=== PATIENT | female | born 1990 | race American Indian/Alaskan Native ===

== ENCOUNTER 2019-02-12 10:08 | Emergency (ER) | payer SELFPAY ==
--- NOTE | 2019-02-12 10:49 | XRay Report ---
Left 3 views: History: fall with injury to fifth digit Findings a fracture noted at the base of the fifth metacarpal subarticular region. No displacement of fracture fragments. Normal proximal and distal diaphysis and the adjacent joints. Impression: Fractured fifth metacarpal.
[2019-02-12] MEDS ORDERED: XYLOCAINE 2% INFILTRATI ONE (10:51)
[2019-02-12] MEDS ORDERED: NORCO 5/325 PO ONE (10:51)
--- NOTE | 2019-02-12 10:52 | Emergency Department Report ---
HPI - General Chief Complaint: Extremity Injury, Upper Time Seen by Provider: 02/12/19 10:50 - HPI HPI: Patient is a 28-year-old female who comes to the ER today 3 days after falling and hurting her left fifth finger. She states that she fell on it while she was out of town and has not sought medical attention. There is an obvious deformity on admission to the ER. There is rapid capillary refill. Patient cannot move the finger. She denies any major medical history. She denies any other injury ED Past Medical Hx - Past Medical History Previous Medical History?: No - Surgical History Past Surgical History?: No - Family History Family history: no significant - Medications Home Medications: Home Medications Medication Instructions Recorded Confirmed Last Taken Type traMADol [Ultram] 50 mg PO Q6HR PRN #10 tablet 02/12/19 Unknown Rx ED Review of Systems ROS: Stated complaint: PINKY FINGER INJURED Other details as noted in HPI Comment: All other systems reviewed and negative Physical Exam - Physical Exam Physical Exam: WDWN patient in NAD VS per RN flow sheet Alert and oriented to person, place and time. S1-S2. No S3 or S4. No systolic or diastolic murmur. No JVD. No pitting edema. Lungs clear to auscultation bilaterally anteriorly and posteriorly. Abdomen soft nontender bowel sounds X4 L 5TH DIGIT W DEFORMITY; RAPID CAP REFILL; DEC MOVEMENT DUE TO PAIN ALL OTHER DIGITS WNL. WRIST JOINT FULL ROM. SP GLF WITH NO OTHER INJURIES Mood and affect appropriate. - Nerve Block Consent Obtained: verbal consent Time Out Performed: Yes Local Anesthetic Used: Lidocaine 2% Amount of anesthesia used: 4 Side: left Nerve Blocks: digital Procedure Successful: Yes Complications: none Patient Tolerated Procedure: well - Orthopedic Fracture Reduction FINGER Consent Obtained: verbal consent Time Out Performed: Yes Side: left Fracture Reduction Location: metacarpal Analgesia: digital block Technique: direct manipulation Post-Reduction Neuro Exam: intact Post-Reduction Vascular Exam: intact Splint Applied: Yes Patient Tolerated Procedure: well ED Medical Decision Making - Radiology Data Radiology results: report reviewed, image reviewed - Medical Decision Making XRAY NOTED MEDICATED FOR PAIN FINGER REDUCED AND SPLINTED DC HOME WITH FOLLOW UP WITH ORTHO ON SUNDAY. NEUROVASC INTACT ON DISCHARGE. Vital Signs 02/12/19 02/12/19 11:27 11:30 Temperature 98.4 F Pulse Rate 82 Respiratory 16 16 Rate Blood Pressure 140/70 O2 Sat by Pulse 100 Oximetry Critical care attestation.: If time is entered above; I have spent that time in minutes in the direct care of this critically ill patient, excluding procedure time. ED Disposition Clinical Impression: Finger fracture, left Disposition: DC-01 TO HOME OR SELFCARE Is pt being admited?: No Does the pt Need Aspirin: No Condition: Stable Instructions: Finger Fracture (ED) Additional Instructions: DIET TOLERATED MEDS ORDERED TODAY IN ER FOLLOW INSTRUCTIONS ON THE BOTTLE FOLLOW UP PCP WITHIN 48 HOURS TO ENSURE YOU ARE GETTING BETTER ACTIVITY TOLERATED MOTRIN OR TYLENOL FOR PAIN OR FEVER RETURN TO THE ER FOR WORSENING SYMPTOMS NOT RELIEVED BY YOUR MEDICATIONS. ICE REST ELEVATE SPLINT FOLLOW UP WITH DR SILVA SUNDAY FOR RECHECK Prescriptions: traMADol [Ultram] 50 mg PO Q6HR PRN #10 tablet PRN Reason: Pain Referrals: KEENA SILVA MD [Staff Physician] - 3-5 Days Time of Disposition: 11:40
[2019-02-12 11:29] VITALS: BP 140/70
== END 2019-02-12 12:06 | disposition home or self-care (01) ==
LOC: ED 10:08
DX: S62.607A Fracture of unspecified phalanx of left little finger, initial encounter for closed fracture (principal); W19.XXXA Unspecified fall, initial encounter; Y93.89 Activity, other specified; Y92.89 Other specified places as the place of occurrence of the external cause; Y99.8 Other external cause status

== ENCOUNTER 2019-11-02 17:47 | Outpatient (CLI) | payer MEDICAID ==
[2019-11-02 19:39] LABS: Hematocrit 32.6 % (30.3-42.9); Hemoglobin 11.1 gm/dl (10.1-14.3); Mean Corpuscular HGB Conc 34 % (30-34); Mean Corpuscular Volume 79 fl (79-97); Platelet Count 224 K/mm3 (140-440); Red Blood Count 4.13 M/mm3 (3.65-5.03); Red Cell Distribution Width 14.9 % (13.2-15.2)
[2019-11-02 19:44] LABS: Bacteria,Urine 4+ /HPF (Negative); Bilirubin,Urine NEG (Negative); Blood,Urine SM (Negative); Color,Urine Yellow (Yellow); Mucus,Urine FEW /HPF; Protein,Urine <15 mg/dL mg/dL (Negative); Urobilinogen,Urine < 2.0 mg/dL (<2.0)
[2019-11-02 20:05] LABS: Alanine Aminotransferase 15 units/L (7-56); Uric Acid 3.4 mg/dL (3.5-7.6)
[2019-11-02 20:53] VITALS: BP 102/57
== END 2019-11-02 21:55 | disposition home or self-care (01) ==
LOC: TRG 17:47
PROVIDERS: ATTEND Obstetrics & Gynecology
DX: O26.892 Other specified pregnancy related conditions, second trimester (principal); R51 Headache; Z3A.27 27 weeks gestation of pregnancy
CPT/HCPCS: 36415; 81001; 82565; 83615; 84450; 84460; 84550; 85027; 87086

== ENCOUNTER 2020-01-28 07:18 | Inpatient (IN) | payer MEDICAID ==
[2020-01-28] MEDS ORDERED: ONDANSETRON 4 MG/2 ML INJ ONE (07:32)
[2020-01-28] MEDS ORDERED: fentaNYL 100 MCG/2 ML INJ ONE (07:32)
[2020-01-28] MEDS ORDERED: OXYTOCIN 20 UNIT/1000ML DRIP 40,000 MILLIUNITS/2,000 ML BAG IV ONE (07:34)
[2020-01-28] MEDS ORDERED: METHYLERGONOVINE MALEATE 0.2 MG/ML VIAL IM ONE (07:44)
[2020-01-28] MEDS ORDERED: ePHEDrine SULFATE 50 MG/1 ML INJ IV PRN (07:56)
[2020-01-28] MEDS ORDERED: ONDANSETRON 4 MG/2 ML INJ IV PRN (07:56)
[2020-01-28] MEDS ORDERED: LIDOCAINE (2%) 20 MG/1 ML VIAL 20 ML MDV INFILTRATI NR (07:56)
[2020-01-28] MEDS ORDERED: fentaNYL 100 MCG/2 ML INJ IV PRN (07:56)
[2020-01-28] MEDS ORDERED: TERBUTALINE 1 MG/1 ML INJ SUB-Q PRN (07:56)
[2020-01-28] MEDS ORDERED: OXYTOCIN 20 UNIT/1000ML DRIP 20 UNITS/1,000 ML BAG IV SCH ×2 (08:00→10:24)
[2020-01-28] MEDS ORDERED: OXYTOCIN DRIP 30 UNITS/500 ML BAG IV SCH (08:00)
[2020-01-28] MEDS ORDERED: LACTATED RINGERS 1,000 ML IV SCH (08:00)
--- NOTE | 2020-01-28 08:03 | History and Physical Report ---
History of Present Illness Date of examination: 01/28/20 Date of admission: 01/28/20 07:18 Chief complaint: labor History of present illness: EDC Calculations LMP: 02/01/2020 Past History : 6 Term Births: 2 Premature Births: 1 Living Children: 3 Para: 3 Mult. Births: 0 Prev : 0 Prev. attempt? 0 Aborta: 2 Elect. Ab: 2 Spont. Ab: 0 Ectopics: 0 # 1 Delivery date: 2007 Weeks Gestation: term labor: no Delivery type: Delivery location: Only Sex: Female weight: 7#12 # 2 Delivery date: 2011 Weeks Gestation: term labor: no Delivery type: Anesthesia type: none Delivery location: Only Sex: Male weight: 7#10 Comments: ^b/p # 3 Delivery date: 2016 Weeks Gestation: 34 labor: yes Delivery type: Anesthesia type: none Delivery location: Only Infant Sex: Female weight: 4#4 Comments: PPROM, placenta problem during , bleeding Risk Factors: Smoked Tobacco Use: Never smoker Smokeless Tobacco Use: Never Drug use: yes Substance: marijuana HIV high-risk behavior: no Alcohol use: no Exercise: no Seatbelt use: 100 % Dietary Counseling: pn yes Past Medical History: Negative Past Medical History Past Surgical History: lipoma removed surgery on right hand/ finger Past Medical History Surgery (Non-aircraft time clerk): lipoma removed surgery on right hand/ finger Abnormal PAP: positive Family Hx: sister and nephew - protein S def - Pt is not a carrier 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 of genital herpes: no Partner hx. of genital herpes: no Rash, Viral, or Febrile illness since last LMP? no Varicella/Chicken Pox Status: Previous Disease Genetic History Congenital Heart Defect: Mom: no Dad: no Sorin Disease: Mom: no Dad: no Thalassemia Mom: no Dad: no Neural Tube Defect Mom: no Dad: no Down's Syndrome Mom: no Dad: no Nathanael-Sachs Mom: no Dad: no Sickle Cell Disease/Trait Mom: no Dad: no Hemophilia Mom: no Dad: no Muscular Dystrophy Mom: no Dad: no Cystic Fibrosis Mom: no Dad: no [place] Chorea Mom: no Dad: no Mental Retardation Mom: no Dad: no Fragile X Mom: no Dad: no Other Genetic/Chromosomal Disorder Mom: no Dad: no Child w/other defect Mom: no Dad: no Enviromental Exposures Xray Exposure: yes Medication, drug, or alcohol use since LMP: no Chemical/Other Exposure: no Exposure to Cat Liter: no Hx of Parvovirus (Fifth Disease): no Occupational Exposure to Children: none Active Medications: None Current Allergies: No known allergies Past History Past Medical History: other (see HPI) Past Surgical History: other (see HPI) LEAD CAREGIVER History: other (See HPI) Family/Genetic History: other (see HPI) - Obstetrical History Expected Date of Delivery: 02/01/20 Actual Gestation: 39 Week(s) 3 Day(s) : 6 Para: 3 Hx # Term Pregnancies: 2 Number of Pregnancies: 1 Spontaneous Abortions: 0 Induced : 2 Number of Living Children: 3 Medications and Allergies Allergies Allergy/AdvReac Type Severity Reaction Status Date / Time No Known Allergies Allergy Unverified 02/12/19 11:27 Home Medications Medication Instructions Recorded Confirmed Last Taken Type traMADoL [Ultram] 50 mg PO Q6HR PRN #10 tablet 02/12/19 Unknown Rx Active Meds: Active Medications Ephedrine Sulfate (Ephedrine Sulfate) 10 mg IV Q2M PRN PRN Reason: Hypotension Fentanyl (Sublimaze) 100 mcg IV Q2H PRN PRN Reason: Pain,Severe (7-10) LABOR PAIN Oxytocin/Sodium Chloride (Pitocin/Ns 20 Unit/1000ml Drip) 20 units in 1,000 mls @ 125 mls/hr IV DIRECT KAYLYNN Oxytocin/Sodium Chloride (Pitocin/Ns 30 Unit/500ml) 30 units in 500 mls @ 1 mls/hr IV TITR KAYLYNN; Protocol Lactated Ringer's (Lactated Ringers) 1,000 mls @ 125 mls/hr IV DIRECT KAYLYNN Lidocaine (Xylocaine 2%) 20 ml INFILTRATI ONCE NR Stop: 01/28/20 10:00 Mineral Oil (Mineral Oil) 30 ml PO QHS PRN PRN Reason: Constipation Ondansetron HCl (Zofran) 4 mg IV Q8H PRN PRN Reason: Nausea And Vomiting Terbutaline Sulfate (Brethine) 0.25 mg SUB-Q ONCE PRN PRN Reason: Hyperstimulation/Hypertonicity Review of Systems All systems: negative - Physical Exam Breasts: Positive: normal Cardiovascular: Regular rate Lungs: Positive: Clear to auscultation, Normal air movement Abdomen: Positive: normal appearance, soft Genitourinary (Female): Positive: other (thick scar tissue from previous medolateral epis repair) Vulva: right: laceration/episiotomy Vagina: Positive: normal moisture Anus/Rectum: Negative: normal perianal skin (tissue very thin between vagina and rectum) Extremities: Positive: normal - Obstetrical Cervical Dilatation: 10 Cervical Effacement Percentage: 100 station: +4 Results Result Diagrams: 01/28/20 07:45 All other labs normal. Assessment and Plan pt arrived and delivered very quickly. Admission orders in EMR. - Patient Problems (1) 39 weeks gestation of Current Visit: Yes Status: Acute (2) Sickle cell trait Current Visit: Yes Status: Acute (3) Rubella nonimmune status, delivered, current hospitalization Current Visit: Yes Status: Acute
--- NOTE | 2020-01-28 08:04 | Procedure Note ---
OB Delivery Note - Delivery Date of Delivery: 01/28/20 ( Female) Surgeon: WIN EDWARDS (repaired laceration) Director Toxicology: PREETI VEGA (performed delivery) Estimated blood loss: 300cc - Vaginal Delivery presentation: vertex Delivery position: OA (FORITNO) Intrapartum events: precipitous labor- <3hr Delivery induction: none Delivery monitor: external FHT Route of delivery: Delivery placenta: spontaneous Delivery cord: 3 umbilical vessels Episiotomy: none Delivery laceration: 4th degree Delivery repair: vicryl Anesthesia: local, intravenous Delivery comments: Male del FORTINO very soon after arrival to [facility]. placed on mother's abdomen for skin to skin. 3 vessel cord and clamped and cut, cord blood collected. Placenta del intact and complete. 4th degree laceration identified along scar tissue from previous delivery, Dr. Edwards called to repair. Apgars 8/9, 's weight 7#8oz. Mother and in stable condition. - Infant A at 1 minute: 8 at 5 minutes: 9 Gender: Female (7#8oz)
[2020-01-28] MEDS ORDERED: KETOROLAC 30 MG/1 ML INJ ONE (08:26)
--- NOTE | 2020-01-28 08:27 | Event Note ---
Date: 01/28/20 4th degree mediolaterial laceration noted through previous incisional scar. Repaired in usual fashion in layers with 2-0 and 3-0 vicryl under local anesthesia. Pt tolerated the procedure well. Rectal exam revealed it is intact with suctures in place and not obstructed. No suctures palpated in the rectum.
[2020-01-28 08:32] LABS: Hematocrit 34.3 % (30.3-42.9); Hemoglobin 11.3 gm/dl (10.1-14.3); Mean Corpuscular HGB Conc 33 % (30-34); Mean Corpuscular Volume 82 fl (79-97); Platelet Count 209 K/mm3 (140-440); Red Cell Distribution Width 13.9 % (13.2-15.2)
[2020-01-28] MEDS ORDERED: OXYTOCIN 10 UNIT/1 ML INJ ONE (08:57)
[2020-01-28] MEDS ORDERED: KETOROLAC 30 MG/1 ML INJ IV ONE (09:00)
[2020-01-28] MEDS ORDERED: diphenhydrAMINE 25 MG CAP PO PRN (10:24)
[2020-01-28] MEDS ORDERED: PROMETHAZINE 25 MG TAB PO PRN (10:24)
[2020-01-28] MEDS ORDERED: ACETAMINOPHEN 325 MG TAB PO PRN (10:24)
[2020-01-28] MEDS ORDERED: HYDROCORTISONE 25 MG RECTAL SUPP PR PRN (10:24)
[2020-01-28] MEDS ORDERED: LANOLIN/ZINC/DIMETHICONE (LANSINOH) 7 GM TP PRN (10:24)
[2020-01-28] MEDS ORDERED: BENZOCAINE/MENTHOL 20/0.5% TOP SPRAY 56 GM TP PRN (10:24)
[2020-01-28] MEDS ORDERED: WITCH HAZEL/ GLYCERIN PAD TP PRN (10:24)
[2020-01-28] MEDS ORDERED: MAGNESIUM HYDROXIDE (MOM) ORAL LIQD UDC PO PRN (10:24)
[2020-01-28] MEDS: HYDROcodone/ACETAMINOPHEN 5-325 MG TAB PO PRN ×2 (10:50→19:38)
[2020-01-28] MEDS: FERROUS SULFATE 325 MG TAB PO SCH ×2 (10:50→21:59)
[2020-01-28] MEDS: PRENATAL VIT27-FE FUMARATE-FOLIC ACID VIT TAB PO SCH (10:51)
[2020-01-28] MEDS: DOCUSATE SODIUM 100 MG CAP PO SCH ×2 (10:53→21:59)
[2020-01-28] MEDS: IBUPROFEN 600 MG TAB PO SCH (17:09)
[2020-01-28 19:59] LABS: Hematocrit 26.5 % (30.3-42.9); Hemoglobin 8.8 gm/dl (10.1-14.3)
[2020-01-28] MEDS ORDERED: MINERAL OIL 30 ML ORAL LIQD PO PRN (22:00)
[2020-01-29] MEDS: HYDROcodone/ACETAMINOPHEN 5-325 MG TAB PO PRN ×3 (01:48→17:25)
[2020-01-29] MEDS ORDERED: DIPHtheria,PERTUSSIS(ACELL),TETANUS VACCINE/PF 0.5 ML VIAL IM ONE (07:59)
--- NOTE | 2020-01-29 08:13 | Progress Note ---
Assessment and Plan patient resting with , c/o pain and soreness as anticipated after 4th degree laceration repair. encouraged pt to use narcotic only as needed and to use stool softener BID to help prevent constipation. pt is otherwise doing well. VSSAF, H&H 8.8/26.5 (asymptomatic, anemia from acute blood loss.) - Patient Problems (1) Sickle cell trait Current Visit: Yes Status: Acute (2) Rubella nonimmune status, delivered, current hospitalization Current Visit: Yes Status: Acute (3) Fourth degree perineal laceration Current Visit: Yes Status: Acute (4) (normal spontaneous vaginal delivery) Current Visit: Yes Status: Acute Plan to address problem: continue pathway Anticipate d/c home tomorrow. Subjective - Subjective Date of service: 01/29/20 Principal diagnosis: day #1 s/p w/ 4th degree lac Interval history: EDC Calculations LMP: 02/01/2020 Past History : 6 Term Births: 2 Premature Births: 1 Living Children: 3 Para: 3 Mult. Births: 0 Prev : 0 Prev. attempt? 0 Aborta: 2 Elect. Ab: 2 Spont. Ab: 0 Ectopics: 0 # 1 Delivery date: 2008 Weeks Gestation: term labor: no Delivery type: Delivery location: [place] Infant Sex: Female weight: 7#12 # 2 Delivery date: 2012 Weeks Gestation: term labor: no Delivery type: Anesthesia type: none Delivery location: [place] Sex: Male weight: 7#10 Comments: ^b/p # 3 Delivery date: 2016 Weeks Gestation: 34 labor: yes Delivery type: Anesthesia type: none Delivery location: [place] Sex: Female weight: 4#4 Comments: PPROM, placenta problem during , bleeding Risk Factors: Smoked Tobacco Use: Never smoker Smokeless Tobacco Use: Never Drug use: yes Substance: marijuana HIV high-risk behavior: no Alcohol use: no Exercise: no Seatbelt use: 100 % Dietary Counseling: pn yes Past Medical History: Negative Past Medical History Past Surgical History: lipoma removed surgery on right hand/ finger Past Medical History Surgery (Non-water/wastewater engineer): lipoma removed surgery on right hand/ finger Abnormal PAP: positive Family Hx: sister and nephew - protein S def - Pt is not a carrier 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 of genital herpes: no Partner hx. of genital herpes: no Rash, Viral, or Febrile illness since last LMP? no Varicella/Chicken Pox Status: Previous Disease Genetic History Congenital Heart Defect: Mom: no Dad: no Sorin Disease: Mom: no Dad: no Thalassemia Mom: no Dad: no Neural Tube Defect Mom: no Dad: no Down's Syndrome Mom: no Dad: no Nathanael-Sachs Mom: no Dad: no Sickle Cell Disease/Trait Mom: no Dad: no Hemophilia Mom: no Dad: no Muscular Dystrophy Mom: no Dad: no Cystic Fibrosis Mom: no Dad: no [place] Chorea Mom: no Dad: no Mental Retardation Mom: no Dad: no Fragile X Mom: no Dad: no Other Genetic/Chromosomal Disorder Mom: no Dad: no Child w/other defect Mom: no Dad: no Enviromental Exposures Xray Exposure: yes Medication, drug, or alcohol use since LMP: no Chemical/Other Exposure: no Exposure to Cat Liter: no Hx of Parvovirus (Fifth Disease): no Occupational Exposure to Children: none Active Medications: None Current Allergies: No known allergies Patient reports: appetite normal, voiding normally, pain well controlled, ambulating normally, no nauseated : doing well, nursing well Objective - Vital Signs Latest vital signs: Vital Signs Temp Pulse Resp BP Pulse Ox 01/29/20 00:39 98.0 F 71 20 120/77 100 01/28/20 16:52 97.9 F 71 18 117/67 100 01/28/20 10:05 98.6 F 68 14 129/59 100 Intake and Output 01/28/20 01/29/20 01/29/20 23:59 07:59 15:59 Intake Total 840 240 Balance 840 240 Intake: Oral 480 240 Intake, Free Water 360 Other: Total, Intake Amount 480 240 # Voids Void 2 1 - Exam Breasts: Present: normal, Cardiovascular: Present: Regular rate Lungs: Present: Clear to auscultation, Normal air movement Abdomen: Present: normal appearance, soft, normal bowel sounds Vulva: both: laceration/episiotomy Uterus: Present: normal, firm, fundal height below umbilicus Extremities: Present: normal Deep Tendon Reflex Grade: Normal +2 Incision: Present: normal, dry, intact - Labs Labs: Abnormal lab results 01/28/20 01/28/20 Range/Units 07:45 19:33 WBC 11.1 H (4.5-11.0) K/mm3 Hgb 8.8 L (10.1-14.3) gm/dl Hct 26.5 L D (30.3-42.9) % MCH 27 L (28-32) pg
[2020-01-29] MEDS ORDERED: MEASLES, MUMPS & RUBELLA 12,500 UNIT/0.5 ML VACCINE SUB-Q ONE (09:22)
[2020-01-29] MEDS: FERROUS SULFATE 325 MG TAB PO SCH ×2 (09:58→21:44)
[2020-01-29] MEDS: PRENATAL VIT27-FE FUMARATE-FOLIC ACID VIT TAB PO SCH (09:58)
[2020-01-29] MEDS: DOCUSATE SODIUM 100 MG CAP PO SCH ×2 (17:25→21:44)
[2020-01-29] MEDS: IBUPROFEN 600 MG TAB PO SCH (21:45)
[2020-01-30] MEDS: HYDROcodone/ACETAMINOPHEN 5-325 MG TAB PO PRN ×2 (03:46→12:21)
--- NOTE | 2020-01-30 08:56 | Discharge Summary ---
Providers - Providers Date of Admission: 01/28/20 07:18 Date of discharge: 01/30/20 (Pt has strong desire to go home.) Attending physician: WIN SOLIZ Primary care physician: ANDRZEJ REZA Hospitalization Reason for admission: active labor Delivery: Episiotomy: none Laceration: 4th degree Incision: edematous (Slight swelling to perineum around incision area noted. ), intact Other procedures: none complications: none Discharge diagnosis: IUP at term delivered [place] baby: female Pertinent studies: 4th degree laceration, repair. Laceration intact, no s/sx of infection. Slight swelling noted. Instructed patient on keeping ice to area to help keep swelling down. Per RN pt will go home with sitz bath and instructions on use. Hospital course: S: Doing well and has strong desire to go home. Passing flatus, ambulating, and voiding without difficulty. BC: BTL. O: VSS. Adequate I&O's. Fundus firm, minimal bleeding noted. Laceration intact, well approximated. No s/sx of infection. H/H 8.8/26.5. A: 29 y.o. s/p @ term. Stable for discharge home. P: Discharge home with instructions. To schedule visit in 4 weeks. Condition at discharge: Good Disposition: DC-01 TO HOME OR SELFCARE Plan - Discharge Medications Prescriptions: Docusate Sodium [Colace] 100 mg PO BID PRN #60 capsule PRN Reason: Constipation Ibuprofen [Motrin] 800 mg PO Q8HR PRN #30 tablet PRN Reason: Pain , Severe (7-10) - Provider Discharge Summary Activity: routine, no sex for 6 weeks, no heavy lifting 4 weeks, no strenuous exercise Diet: routine Instructions: routine Additional instructions: [] Smoking cessation referral if applicable(refer to patient education folder for contact #) [] Refer to [facility] Booklet Call your doctor immediately for: * Fever > 100.5 * Heavy vaginal bleeding ( >1 pad per hour) * Severe persistent headache * Shortness of breath * Reddened, hot, painful area to leg or breast * Drainage or odor from incision. * Keep incision clean and dry at all times and follow doctor's instructions regarding bathing/showering - Follow up plan Follow up: ANDRZEJ REZA MD [Primary Care Provider] - 7 Days (Congratulations!! Please schedule a visit in 4 weeks. Please take all medication as prescribed. if you have any questions or concerns please do not hesitate to call the office after you are discharged home from the hospital. Office phone number: [phone].) Forms: [facility] Discharge Summary, DC Identification Form
[2020-01-30] MEDS: IBUPROFEN 600 MG TAB PO SCH (11:51)
[2020-01-30] MEDS: DOCUSATE SODIUM 100 MG CAP PO SCH (12:20)
[2020-01-30] MEDS: FERROUS SULFATE 325 MG TAB PO SCH (12:21)
[2020-01-30] MEDS: PRENATAL VIT27-FE FUMARATE-FOLIC ACID VIT TAB PO SCH (12:21)
[2020-01-30 14:39] VITALS: BP 155/62
== END 2020-01-30 14:00 | disposition home or self-care (01) | DRG 775 ==
LOC: LD 07:18 → OB 10:16
PROVIDERS: ADMIT Obstetrics & Gynecology; ATTEND Obstetrics & Gynecology
PROC: 10E0XZZ Delivery of Products of Conception, External Approach (ICD-10-PCS; principal; 2020-01-28)
PROC: 0DQP0ZZ Repair Rectum, Open Approach (ICD-10-PCS; 2020-01-28)
PROC: 3E0234Z Introduction of Serum, Toxoid and Vaccine into Muscle, Percutaneous Approach (ICD-10-PCS; 2020-01-29)
PROC: 3E0134Z Introduction of Serum, Toxoid and Vaccine into Subcutaneous Tissue, Percutaneous Approach (ICD-10-PCS; 2020-01-29)
DX: O62.3 Precipitate labor (principal); Z3A.39 39 weeks gestation of pregnancy; O70.3 Fourth degree perineal laceration during delivery; Z37.0 Single live birth; D57.3 Sickle-cell trait; O99.02 Anemia complicating childbirth; Z23 Encounter for immunization; D62 Acute posthemorrhagic anemia
CPT/HCPCS: 36415; 85014; 85018; 85027; 86592; 86850; 86900; 86901; G0378; J1885; J2210; J2405; J2590; J3010

== ENCOUNTER 2020-05-27 07:50 | Emergency (ER) | payer MEDICAID ==
[2020-05-27 10:30] LABS: Bacteria,Urine 1+ /HPF (Negative); Bilirubin,Urine NEG (Negative); Blood,Urine LG (Negative); Color,Urine Yellow (Yellow); Mucus,Urine FEW /HPF; Urobilinogen,Urine < 2.0 mg/dL (<2.0)
[2020-05-27 10:32] LABS: Protein,Urine >500 mg/dL (Negative); RBC,Urine > 182.0 /HPF (0.0-6.0)
[2020-05-27 10:41] LABS: HCG Qualitative,Urine Negative (Negative)
--- NOTE | 2020-05-27 11:33 | Emergency Department Report ---
ED Female HPI - General Chief complaint: Abdominal Pain Stated complaint: ABDOMINAL PAIN Time Seen by Provider: 05/27/20 08:45 Source: patient Mode of arrival: Ambulatory Limitations: No Limitations - History of Present Illness Initial comments: 30-year-old F Malaysian female resents emergency department complaining of a 1 to 2-day history suprapubic discomfort associated with dysuria and hematuria. Increased urinary urgency and pressure with decreased urinary production. Reports no constipation no diarrhea no pelvic trauma. She reports no suspicion for an STD or . No nausea vomiting. She has not had any tract infection in her life so she does not know how to relate the symptoms. MD Complaint: dysuria Location: suprapubic Radiation: suprapubic Severity: mild Quality: burning Consistency: constant Improves with: none Worsens with: none Are you Now?: No Associated Symptoms: dysuria. denies: denies other symptoms, vaginal discharge, abdominal pain, shortness of breath, syncope - Related Data Sexually active: No Previous Rx's Medication Instructions Recorded Last Taken Type traMADoL [Ultram] 50 mg PO Q6HR PRN #10 tablet 02/12/19 Unknown Rx Docusate Sodium [Colace] 100 mg PO BID PRN #60 capsule 01/30/20 Unknown Rx Ibuprofen [Motrin] 800 mg PO Q8HR PRN #30 tablet 01/30/20 Unknown Rx Nitrofurantoin Lipscomb/M-Cryst 100 mg PO Q12HR #20 capsule 05/27/20 Unknown Rx [Macrobid CAP] Phenazopyridine [Pyridium] 200 mg PO TID #9 tab 05/27/20 Unknown Rx Allergies Allergy/AdvReac Type Severity Reaction Status Date / Time No Known Allergies Allergy Unverified 02/12/19 11:27 ED Review of Systems ROS: Stated complaint: ABDOMINAL PAIN Other details as noted in HPI Comment: All other systems reviewed and negative ED Past Medical Hx - Past Medical History Previous Medical History?: Yes Hx Hypertension: No Hx Diabetes: No Hx Deep Vein Thrombosis: No Hx Renal Disease: No Hx Sickle Cell Disease: No Hx Seizures: No Hx Asthma: Yes - Surgical History Past Surgical History?: Yes Additional Surgical History: right 5th finger - Social History Smoking Status: Current Every Day Smoker Substance Use Type: None - Medications Home Medications: Home Medications Medication Instructions Recorded Confirmed Last Taken Type traMADoL [Ultram] 50 mg PO Q6HR PRN #10 tablet 02/12/19 01/28/20 Unknown Rx Docusate Sodium [Colace] 100 mg PO BID PRN #60 capsule 01/30/20 Unknown Rx Ibuprofen [Motrin] 800 mg PO Q8HR PRN #30 tablet 01/30/20 Unknown Rx Nitrofurantoin Lipscomb/M-Cryst 100 mg PO Q12HR #20 capsule 05/27/20 Unknown Rx [Macrobid CAP] Phenazopyridine [Pyridium] 200 mg PO TID #9 tab 05/27/20 Unknown Rx ED Physical Exam - General Limitations: No Limitations ED Course Vital Signs 05/27/20 07:51 Temperature 98.8 F Pulse Rate 101 H Respiratory 18 Rate Blood Pressure 149/100 O2 Sat by Pulse 100 Oximetry Critical care attestation.: If time is entered above; I have spent that time in minutes in the direct care of this critically ill patient, excluding procedure time. ED Disposition Clinical Impression: UTI (urinary tract infection) Disposition: TO HOME OR SELFCARE Is pt being admited?: No Does the pt Need Aspirin: No Condition: Stable Instructions: Abdominal Pain (ED), Urinary Tract Infection in Women (ED), Phenazopyridine (By mouth), Dysuria (ED), Acute Hematuria (ED) Prescriptions: Nitrofurantoin Lipscomb/M-Cryst [Macrobid CAP] 100 mg PO Q12HR #20 capsule Phenazopyridine [Pyridium] 200 mg PO TID #9 tab Referrals: [facility] [place] [Provider Group] - 3-5 Days
[2020-05-27 11:47] VITALS: BP 119/56
== END 2020-05-27 11:45 | disposition home or self-care (01) ==
LOC: ED 07:50
DX: N39.0 Urinary tract infection, site not specified (principal); J45.909 Unspecified asthma, uncomplicated; F17.200 Nicotine dependence, unspecified, uncomplicated; Z98.890 Other specified postprocedural states; Z79.1 Long term (current) use of non-steroidal anti-inflammatories (NSAID); Z79.899 Other long term (current) drug therapy
CPT/HCPCS: 81001; 81025; 87086

== ENCOUNTER 2021-01-20 20:01 | Emergency (ER) | payer MEDICAID ==
[2021-01-20 20:56] VITALS: BP 126/77
[2021-01-20] MEDS ORDERED: ACETAMINOPHEN 500 MG TAB PO ONE (23:03)
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
== END 2021-01-21 00:50 | disposition home or self-care (01) ==
LOC: ED 20:01
DX: O9A.212 Injury, poisoning and certain other consequences of external causes complicating pregnancy, second trimester (principal); S39.012A Strain of muscle, fascia and tendon of lower back, initial encounter; G44.319 Acute post-traumatic headache, not intractable; M62.838 Other muscle spasm; J45.909 Unspecified asthma, uncomplicated; Z3A.15 15 weeks gestation of pregnancy; Z98.890 Other specified postprocedural states; Z79.899 Other long term (current) drug therapy; V49.49XA Driver injured in collision with other motor vehicles in traffic accident, initial encounter; Y93.89 Activity, other specified; Y92.410 Unspecified street and highway as the place of occurrence of the external cause; Y99.8 Other external cause status
CPT/HCPCS: 70450; 72125